=== PATIENT | male | born 1935 | race Caucasian/White ===

== ENCOUNTER 2018-11-08 21:53 | Observation (INO) | payer BC, MEDICARE ==
[~2018-11-08] VITALS: Ht 165.1 cm; Wt 65.2 kg
[~2018-11-08 21:53] MED LIST: LISI20 PO; PRED1 PO; PRED5 PO
[2018-11-08 22:16] LABS: BASOPHILS ABSOLUTE AUTO 0.06 K/mm3 (0.00-0.23); BASOPHILS PERCENT AUTO 1 % (0-2); EOSINOPHILS PERCENT AUTO 1 % (0-6); Hemoglobin 11.5 g/dL (13.5-17.5); IMMATURE GRAN ABSOLUTE AUTO 0.02 K/mm3 (0.00-0.10); IMMATURE GRAN PERCENT AUTO 0 % (0-1); LYMPHOCYTES ABSOLUTE AUTO 2.59 K/mm3 (0.84-5.20); LYMPHOCYTES PERCENT AUTO 29 % (21-46); MONOCYTES ABSOLUTE AUTO 0.84 K/mm3 (0.16-1.47); MONOCYTES PERCENT AUTO 10 % (4-13); Mean Corpuscular HGB 19.4 pg (26.0-34.0); Mean Corpuscular HGB Conc 31.1 g/dL (31.5-36.5); Mean Corpuscular Volume 62 fL (80-100); NEUTROPHILS ABSOLUTE AUTO 5.21 K/mm3 (1.96-9.15); NEUTROPHILS PERCENT AUTO 59 % (41-73); Platelet Count 199 K/mm3 (150-400); Red Blood Cell Count 5.94 M/mm3 (4.30-5.90); White Blood Cell Count 8.82 K/mm3 (4.00-11.30)
[2018-11-08 22:35] LABS: Alanine Aminotransfer (ALT/SGP 11 U/L (12-78); Albumin, Blood 3.8 g/dL (3.4-5.0); Alk Phos 64 U/L (50-136); Anion Gap 4 mmol/L (6-16); Aspartate Aminotrans (AST/SGOT 14 U/L (12-37); Bilirubin, Total 0.5 mg/dL (0.1-1.0); Blood Urea Nitrogen 16 mg/dL (8-24); Bun/Creatinine Ratio 21.9 (12.0-20.0); CO2, Blood 30 mmol/L (21-32); Calcium, Blood 8.6 mg/dL (8.5-10.1); Chloride, Blood 108 mmol/L (98-108); Creatinine, Blood 0.73 mg/dL (0.60-1.20); Globulin, Blood 3.7 g/dL (2.2-4.0); Glomerular Filtration Rate >60 (60-); Glucose, Blood 95 mg/dL (70-99); Potassium, Blood 4.1 mmol/L (3.5-5.5); Sodium, Blood 142 mmol/L (136-145); Total Protein, Blood 7.5 g/dL (6.4-8.2); Troponin I <0.015 ng/mL (0.000-0.040)
[2018-11-09 00:46] LABS: Source, Urine Clean Catch
[2018-11-09 00:55] LABS: Bilirubin, Urine Neg (Neg); Blood, Urine Neg (Neg); Glucose Qualitative, Urine Neg (Neg); Ketones, Urine Neg (Neg); Leukocyte Esterase, Urine Neg (Neg); Nitrite, Urine Neg (Neg); Protein, Urine Neg (Neg); Urobilinogen, Urine NORM (Normal)
[2018-11-09 00:56] LABS: Appearance, Urine Clear (Clear); Color, Urine Yellow (P-Yellow)
--- NOTE | 2018-11-09 06:05 | NUR ---
SHIFT SUMMARY PT NEW ADMIT TO FLOOR THIS AM AROUND 0215. AOX3-UNAWARE OF YR, CAN STATE MONTH & DATE, UNAWARE EXACTLY WHY IN HOSPITAL STATES "BECAUSE I WASN'T FEELING WELL." POOR HISTORIAN W/MEDICAL HX & STATES HE IS NOT TAKING ANY MEDS @HOME. HAS R. SIDED WEAKNESS W/WEAK DRIP BOX TENDER/PEDAL PUSHES HOWEVER STILL ABLE TO LIFT & MOVE R. ARM/LEG WHEN ASKED. FOLLOWS DIRECTIONS, HAS SLURRED SPEECH. CONTINENT OF URINE. SCROTUM IS REDDENED & VERY SWOLLEN. DENIES N/V/D, PAIN, OR DYSPNEA. REPORTS HE USUALLY INDEPENDENTLY WALKS AROUND HIS HOME. BPS ELEVATED W/ADMISSION, PHYSICIAN AWARE, HAS BEEN TRENDING DOWN. TELE IN PLACE & PT @[facility] W/HR 60 PER PCU HAIR COLORIST. CALL LIGHT IN REACH.
[2018-11-09 08:05] LABS: Hematocrit 36.9 % (37.0-53.0); Hemoglobin 11.6 g/dL (13.5-17.5); Mean Corpuscular HGB 19.5 pg (26.0-34.0); Mean Corpuscular HGB Conc 31.4 g/dL (31.5-36.5); Mean Corpuscular Volume 62 fL (80-100); NRBC ABSOLUTE 0.02 K/mm3 (0.00-0.02); NRBC Auto 0.2 /100 WBC (0.0-0.2); Platelet Count 197 K/mm3 (150-400); RDW Coefficient Variation 16.9 % (11.7-14.2); RDW Standard Deviation 34.6 fL (35.1-46.3); Red Blood Cell Count 5.94 M/mm3 (4.30-5.90); White Blood Cell Count 8.92 K/mm3 (4.00-11.30)
[2018-11-09 08:23] LABS: Alanine Aminotransfer (ALT/SGP 14 U/L (12-78); Albumin, Blood 3.5 g/dL (3.4-5.0); Alk Phos 61 U/L (50-136); Anion Gap 5 mmol/L (6-16); Aspartate Aminotrans (AST/SGOT 20 U/L (12-37); Bilirubin, Total 0.7 mg/dL (0.1-1.0); Blood Urea Nitrogen 11 mg/dL (8-24); Bun/Creatinine Ratio 16.2 (12.0-20.0); CO2, Blood 28 mmol/L (21-32); Calcium, Blood 8.2 mg/dL (8.5-10.1); Chloride, Blood 106 mmol/L (98-108); Creatinine, Blood 0.68 mg/dL (0.60-1.20); Globulin, Blood 3.5 g/dL (2.2-4.0); Glomerular Filtration Rate >60 (60-); Glucose, Blood 96 mg/dL (70-99); Potassium, Blood 3.7 mmol/L (3.5-5.5); Sodium, Blood 139 mmol/L (136-145)
--- NOTE | 2018-11-09 09:15 | NUR ---
Echocardiogram completed.
--- NOTE | 2018-11-09 16:33 | NUR ---
SUMMARY PT IS A/O X3, PLEASANT AFFECT, COOPERATIVE WITH ALL TX. DX CVA, R SIDED WEAKNESS/UNCOORDINATION CONTINUES. VIRA. SPEECH THICK/SLURRED. NO FACIAL DROOP NOTED. ST EVAL THIS AM, PT COUGHS/CHOKES ON THIN LIQUIDS. MECH SOFT, NECTAR THICK DIET ORDERED. PT/OT EVAL THIS AM, PT IS ABLE TO BR WT & AMBULATE WITH HEMIWALKER, UP IN CHAIR FOR APPROX 2HR. SUPERVISION WITH LUNCH REQUIRED. IN THIS AFTERNOON TO VISIT, QUESTIONS/CONCERNS ADDRESSED/ANSWERED. VSS.
--- NOTE | 2018-11-10 05:56 | NUR ---
SHIFT SUMMARY PT HAS SLEPT WELL T/O NIGHT. NO ACUTE CHANGES NOTED, SEE NEURO ASSESSMENTS. PT OFFERS NO C/O'S PRIOR TO BED. WILL CONTINUE TO MONITOR.
--- NOTE | 2018-11-10 18:46 | NUR ---
shift summary patient pleasant, no acute concerns at this time. potential discharge tomorrow to snf. pleasant, alert and oriented. will assess for any changes. patient has r sided deficits from his cva, gross movement only on the left side.
--- NOTE | 2018-11-11 05:44 | NUR ---
PT. SLEPT WELL T/O THE NIGHT, NO APPARENT DISTRESS NOTED OR ACUTE CHANGES. PT. A&O, HAS RT SIDED WEAKNESS AND SCROTUM VERY SWOLLEN AND REDDENED. PT. DENIES PAIN OR DISCOMFORT AT THIS TIME. CALL LIGHT WITHIN REACH AND SIDE RAILS UP X 3. WILL CONT TO MONITOR.
[2018-11-11] MEDS ORDERED: ATOR80 PO (10:13)
[2018-11-11] MEDS ORDERED: CLOP75 PO (10:19)
[2018-11-11] MEDS ORDERED: Biscolax10 MG PR (10:19)
[2018-11-11] MEDS ORDERED: ENOX40I SC (10:20)
[2018-11-11] MEDS ORDERED: DOCU100 PO (10:20)
[2018-11-11] MEDS ORDERED: Milk Of Ma400 MG/5 M PO (10:21)
--- NOTE | 2018-11-11 11:44 | NUR ---
MARNIE AT [facility] WAS GIVEN REPORT AT 1150. NO ACUTE CONCERNS IV WAS REMOVED AND PATIEN TRANSPORTED BY [facility] TO [facility].
== END 2018-11-11 11:47 ==
LOC: ER 21:53 → MEDS 21:55 → ER 11-09 02:12 → MEDS 11-09 02:12 → ER 11-11 07:45 → MEDS 11-11 07:45
PROVIDERS: Emergency Medicine; ADMIT Internal Medicine
DX: I63.9 Cerebral infarction, unspecified (principal); G81.91 Hemiplegia, unspecified affecting right dominant side; R47.1 Dysarthria and anarthria; I67.1 Cerebral aneurysm, nonruptured; N50.3 Cyst of epididymis; F17.210 Nicotine dependence, cigarettes, uncomplicated; N50.89 Other specified disorders of the male genital organs; I11.9 Hypertensive heart disease without heart failure; J44.9 Chronic obstructive pulmonary disease, unspecified; F10.20 Alcohol dependence, uncomplicated; Z87.39 Personal history of other diseases of the musculoskeletal system and connective tissue; Z79.02 Long term (current) use of antithrombotics/antiplatelets; Z79.01 Long term (current) use of anticoagulants; Z79.899 Other long term (current) drug therapy
CPT/HCPCS: 36415; 70496; 71046; 76870; 80053; 81003; 84484; 85025; 85027; 92526; 92610; 93005; 93010; 93306; 93880; 97110; 97162; 97166; 97530; 99285-25; G0378; G0480; J1650; Q9967

== ENCOUNTER 2019-04-17 07:21 | Day surgery (SDC) | payer BC, MEDICARE ==
[~2019-04-17] VITALS: Ht 172.7 cm; Wt 71.0 kg
[~2019-04-17 07:21] MED LIST changes: +ATOR80 PO; +Biscolax10 MG PR; +CLOP75 PO; +DOCU100 PO; +ENOX40I SC; +Milk Of Ma400 MG/5 M PO
[2019-04-17] MEDS ORDERED: NORVASC10 MG PO (08:44)
[2019-04-17] MEDS ORDERED: LISI20 PO (08:45)
--- NOTE | 2019-04-17 10:13 | NUR ---
PT AND VERBALIZED UNDERSTANDING OF WRITTEN AND VERBAL D/C INST. IV REMOVED. PT TAKING PO FLUIDS WELL. PT TAKEN OUT OF THE HRT CENTER VIA W/C.
== END 2019-04-17 22:45 | disposition home or self-care (01) ==
LOC: MHTC 07:21
DX: I70.0 Atherosclerosis of aorta (principal); I35.8 Other nonrheumatic aortic valve disorders; J44.9 Chronic obstructive pulmonary disease, unspecified; F17.210 Nicotine dependence, cigarettes, uncomplicated; E78.5 Hyperlipidemia, unspecified; M35.3 Polymyalgia rheumatica; I10 Essential (primary) hypertension; I69.351 Hemiplegia and hemiparesis following cerebral infarction affecting right dominant side; Z79.02 Long term (current) use of antithrombotics/antiplatelets; Z79.899 Other long term (current) drug therapy
CPT/HCPCS: 93312; 93325; 99152; 99153; J2704; J7030